=== PATIENT | female | born 1970 | race Caucasian/White ===

== ENCOUNTER 2017-06-23 23:01 | Emergency (ER) | payer MEDICARE, MEDICAID ==
[2017-06-23] MEDS ORDERED: traMADol TAB* 50 MG PO ONE (23:41)
[2017-06-24] MEDS ORDERED: traMADol TAB* 50 MG PO ONE (00:31)
[2017-06-24 00:44] VITALS: BP 130/72
--- NOTE | 2017-06-24 03:13 | ED ---
Back Pain - HPI Summary HPI Summary: Patient presents to the ED with CC of right lower rib pain after falling into the side of the console in her van. She denies breathing difficulties and notes to pain a 8/10 and constant. Denies fevers, sweats or chills. Denies urinary symptoms or abdominal pain. Multiple complaints and significant history at baseline, but states she only wants to assure she does not have a rib fracture. Worse with movement, better with rest. Pain is 5/10 at rest. - History of Current Complaint Chief Complaint: EDGeneral Stated Complaint: RT SIDE INJURY Time Seen by Provider: 06/23/17 23:12 Hx Obtained From: Patient Onset/Duration: Sudden Onset Onset/Duration: Started Minutes Ago Timing: Constant Back Pain Location: Is Discrete @ - right lower ribs Severity Initially: Moderate Severity Currently: Moderate Pain Intensity: 2 Pain Scale Used: 0-10 Numeric Character: Aching Aggravating Symptom(s): Movement, Bending, Walking, Cough Alleviating Symptom(s): Rest, Position Associated Signs And Symptoms: Positive: Negative - Risk Factors AAA Risk Factors: Negative TAD Risk Factors: Negative Cauda Equina Risk Factors: Negative Epidural Abscess Risk Factors: Negative - Allergies/Home Medications Allergies/Adverse Reactions: Allergies Allergy/AdvReac Type Severity Reaction Status Date / Time Statins Allergy Severe See Comment Verified 07/31/16 15:44 Erythromycin Allergy Palpitation Verified 07/31/16 15:44 s Penicillins [PCN] Allergy Unknown Verified 07/31/16 15:44 Reaction Details Shellfish Allergy Allergy Swelling Verified 07/31/16 15:44 Of Face,Lips,& Throat BEE STING Allergy Severe Anaphylatic Uncoded 06/07/16 18:10 Shock PMH/Surg Hx/FS Hx/Imm Hx Previously Healthy: Yes Endocrine/Hematology History: Denies: Hx Sickle Cell Disease Cardiovascular History: Denies: Other Cardiovascular Problems/Disorders Respiratory History: Reports: Hx Asthma, Hx Chronic Obstructive Pulmonary Disease (COPD) Denies: Hx Sleep Apnea GI History: Reports: Hx Gastroesophageal Reflux Disease History: Reports: Hx Kidney Infection - SIX YEARS AGO DUE TO STONE, Hx Kidney Stones - KIDNEY STONE 6 YEARS AGO Musculoskeletal History: Reports: Hx Arthritis - OSTEOARTHRITIS IN KNEES, AND HANDS, Hx Scoliosis, Other Musculoskeletal History - PATIENT REPORTS HAD OSTEOARTHRITIS STARTING IN HANDS BUT IT WENT AWAY Sensory History: Reports: Hx Contacts or Glasses - READING GLASSES Denies: Hx Hearing Aid Opthamlomology History: Reports: Hx Contacts or Glasses - READING GLASSES Neurological History: Reports: Hx Migraine - ON MED, Other Neuro Impairments/ Disorders - MUSCULAR DYSTROPHY NAME- NEMALINE RODMOPATHY Psychiatric History: Reports: Hx Anxiety - ON MED - Surgical History Surgery Procedure, Year, and Place: DENTAL. GALLBLADDER-2008. SPINAL FUSION - 1984 Hx Anesthesia Reactions: No - NO MRI AND NO SPINAL TAP - Immunization History Hx Pertussis Vaccination: No Immunizations Up to Date: Unable to Obtain/Confirm Infectious Disease History: No Infectious Disease History: Denies: Traveled Outside the [place] in Last 30 Days - Family History Known Family History: Positive: Cardiac Disease - Social History Occupation: Employed Full-time Lives: With Family Alcohol Use: Rare Hx Substance Use: No Substance Use Type: Reports: None Hx Tobacco Use: No Smoking Status (MU): Never Smoked Tobacco Review of Systems Constitutional: Negative Negative: Fever, Chills, Fatigue Eyes: Negative Cardiovascular: Negative Negative: Palpitations, Chest Pain Respiratory: Negative Negative: Shortness Of Breath, Cough Negative: Abdominal Pain, Vomiting, Diarrhea, Nausea Positive: no symptoms reported, see HPI Positive: Arthralgia - right rib pain Negative: Rash, Bruising Neurological: Negative All Other Systems Reviewed And Are Negative: Yes Physical Exam Triage Information Reviewed: Yes Vital Signs On Initial Exam: Initial Vitals Temp Pulse Resp BP Pulse Ox 97.8 F 75 14 136/78 98 06/23/17 23:04 06/23/17 23:04 06/23/17 23:04 06/23/17 23:04 06/23/17 23:04 Vital Signs Reviewed: Yes Appearance: Positive: Well-Appearing, Well-Nourished Skin: Positive: Warm, Skin Color Reflects Adequate Perfusion Head/Face: Positive: Normal Head/Face Inspection Eyes: Positive: EOMI, MACARENA, Conjunctiva Clear Neck: Positive: Supple, No Lymphadenopathy Respiratory/Lung Sounds: Positive: Clear to Auscultation Cardiovascular: Positive: Normal, RRR, Pulses are Symmetrical in both Upper and Lower Extremities Musculoskeletal: Positive: Normal, Strength/ROM Intact Neurological: Positive: Sensory/Motor Intact, Alert, Oriented to Person Place, Time, Speech Normal Psychiatric: Positive: Normal - [place] Coma Scale Coma Scale Total: 15 Diagnostics - Vital Signs Vital Signs Temp Pulse Resp BP Pulse Ox 06/24/17 00:43 77 18 130/72 98 10/13/17 23:04 97.8 F 75 14 136/78 98 - Laboratory Lab Statement: Any lab studies that have been ordered have been reviewed, and results considered in the medical decision making process. Back Pain Course/Dx - Course Course Of Treatment: Patient is evaluted for right rib pain. Xray read by Dr. Randolph and myself as negative for fracture or other acute findings. Patient is given tramadol 50mg with relief. Rx sent. She is Ok with discharge. - Diagnoses Differential Diagnosis/HQI/PQRI: Positive: Strain, Sprain Provider Diagnoses: Contusion of rib Discharge - Discharge Plan Condition: Stable Disposition: HOME Prescriptions: traMADol TAB* [Ultram*] 50 mg PO Q12H PRN #6 tab MDD 2 PRN Reason: Pain Patient Education Materials: Rib Contusion (ED) Referrals: Lonnie JOHNSON,Darrin Gorman [Primary Care Provider] - Additional Instructions: Follow up only as needed for worsening pain Ibuprofen 600mg three times daily for pain For pain not well controlled with ibuprofen, tramadol 50mg twice daily Do not drive with this medication
--- NOTE | 2017-06-24 07:06 | RAD ---
INDICATION: Right rib injury. COMPARISON: There are no prior studies available for comparison. TECHNIQUE: 6 views of the right ribs and a PA view of the chest was obtained. FINDINGS: No fracture or significant focal osseous abnormality is seen. The heart is within normal limits in size. The lungs are clear. There is no evidence for pneumothorax or pleural effusion. IMPRESSION: NO EVIDENCE FOR FRACTURE.
== END 2017-06-24 00:46 | disposition home or self-care (01) ==
LOC: ED 23:01
DX: S20.211A Contusion of right front wall of thorax, initial encounter (principal); R07.81 Pleurodynia; W19.XXXA Unspecified fall, initial encounter; Y93.9 Activity, unspecified; Y92.9 Unspecified place or not applicable
CPT/HCPCS: 99283; A9270-GY

== ENCOUNTER 2018-05-16 23:53 | Emergency (ER) | payer MEDICARE, MEDICAID ==
--- NOTE | 2018-05-17 00:35 | ED ---
Abdominal Pain/Female - HPI Summary HPI Summary: This is Fredy rocha, documenting for attending Anais Glass MD. Pt is a 47 y/o F c/o L sided flank pain onset ~ 1 month ago, resolving and returning today ~2357 after working. Pain is described as sharp and rated a 9/ 10. Assoc. Sx: L flank pain, nausea. Denies: vomiting, fever. Patient has had a kidney stone in the past, states that she has not been peeing much and has metal rods in her back. She reports that nothing alleviates the pain. - History of Current Complaint Chief Complaint: EDFlankPain Stated Complaint: LEFT SIDE PAIN Time Seen by Provider: 05/17/18 00:18 Hx Obtained From: Patient Onset/Duration: Gradual Onset, Lasting Weeks, Still Present Severity Currently: Moderate Pain Intensity: 6 Pain Scale Used: 0-10 Numeric Location: Flank - L Character: Sharp Alleviating Factor(s): Nothing Associated Signs and Symptoms: Positive: Nausea. Negative: Vomiting Allergies/Adverse Reactions: Allergies Allergy/AdvReac Type Severity Reaction Status Date / Time bee venom protein (honey bee) Allergy Anaphylatic Verified 05/17/18 00:22 Shock erythromycin base Allergy Palpitation Verified 05/17/18 00:22 s Penicillins Allergy Unknown Verified 05/17/18 00:22 Reaction Details shellfish derived Allergy Swelling Verified 05/17/18 00:22 Of Face,Lips,& Throat Rfewtiy-Liq-Ocb Reductase Allergy See Comment Verified 05/17/18 00:22 Inhibitor BEE STING Allergy Severe Anaphylatic Uncoded 05/17/18 00:22 Shock Home Medications: Home Medications Cyanocobalamin TAB* [Vitamin B12 TAB*] 500 mcg PO DAILY 05/17/18 [History Confirmed 05/17/18] PMH/Surg Hx/FS Hx/Imm Hx Endocrine/Hematology History: Denies: Hx Sickle Cell Disease Cardiovascular History: Denies: Other Cardiovascular Problems/Disorders Respiratory History: Reports: Hx Asthma, Hx Chronic Obstructive Pulmonary Disease (COPD) Denies: Hx Sleep Apnea GI History: Reports: Hx Gastroesophageal Reflux Disease History: Reports: Hx Kidney Infection - SIX YEARS AGO DUE TO STONE, Hx Kidney Stones - KIDNEY STONE 6 YEARS AGO Musculoskeletal History: Reports: Hx Arthritis - OSTEOARTHRITIS IN KNEES, AND HANDS, Hx Scoliosis, Other Musculoskeletal History - PATIENT REPORTS HAD OSTEOARTHRITIS STARTING IN HANDS BUT IT WENT AWAY Sensory History: Reports: Hx Contacts or Glasses - READING GLASSES Opthamlomology History: Reports: Hx Contacts or Glasses - READING GLASSES Neurological History: Reports: Hx Migraine - ON MED, Other Neuro Impairments/ Disorders - MUSCULAR DYSTROPHY NAME- NEMALINE RODMOPATHY Psychiatric History: Reports: Hx Anxiety - ON MED - Surgical History Surgery Procedure, Year, and Place: DENTAL. GALLBLADDER-2008. SPINAL FUSION - 1984 Hx Anesthesia Reactions: No - NO MRI AND NO SPINAL TAP - Immunization History Date of Tetanus Vaccine: utd Date of Influenza Vaccine: none Infectious Disease History: No Infectious Disease History: Denies: Traveled Outside the [place] in Last 30 Days - Family History Known Family History: Positive: Cardiac Disease - Social History Occupation: Disabled Lives: Dormitory/Roommates Alcohol Use: None Hx Substance Use: No Substance Use Type: Reports: Prescribed Substance Use Comment - Amount & Last Used: xanax - prn, and hydrocodone 5/325 q4h Hx Tobacco Use: No Smoking Status (MU): Never Smoked Tobacco Have You Smoked in the Last Year: No Review of Systems Negative: Fever Positive: Abdominal Pain - L flank, Nausea. Negative: Vomiting All Other Systems Reviewed And Are Negative: Yes Physical Exam - Summary Physical Exam Summary: VITAL SIGNS: Reviewed. GENERAL: Patient is a severely obese female who is lying comfortable in the stretcher. Patient is not in any acute respiratory distress. HEAD AND FACE: No signs of trauma. No ecchymosis, hematomas or skull depressions. No sinus tenderness. EYES: PERRLA, EOMI x 2, No injected conjunctiva, no nystagmus. EARS: Hearing grossly intact. Ear canals and tympanic membranes are within normal limits. MOUTH: Oropharynx within normal limits. NECK: Supple, trachea is midline, no adenopathy, no JVD, no carotid bruit, no c- spine tenderness, neck with full ROM. CHEST: Symmetric, no tenderness at palpation LUNGS: Clear to auscultation bilaterally. No wheezing or crackles. CVS: Regular rate and rhythm, S1 and S2 present, no murmurs or gallops appreciated. ABDOMEN: LLQ tenderness. No signs of distention. No rebound no guarding, and no masses palpated. Bowel sounds are normal. EXTREMITIES: FROM in all major joints, no edema, no cyanosis or clubbing. NEURO: Alert and oriented x 3. No acute neurological deficits. Speech is normal and follows commands. SKIN: Dry and warm Triage Information Reviewed: Yes Vital Signs On Initial Exam: Initial Vitals Temp Pulse Resp BP Pulse Ox 97.9 F 98 16 125/69 98 05/16/18 23:56 05/16/18 23:56 05/16/18 23:56 05/16/18 23:56 05/16/18 23:56 Vital Signs Reviewed: Yes Diagnostics - Vital Signs Vital Signs Temp Pulse Resp BP Pulse Ox 05/16/18 23:56 97.9 F 98 16 125/69 98 - Laboratory Result Diagrams: 05/17/18 00:53 05/17/18 00:53 Lab Statement: Any lab studies that have been ordered have been reviewed, and results considered in the medical decision making process. - CT A/P CT CT Interpretation: Positive (See Comments) - IMPRESSION: Descending sigmoid junction colon diverticulitis. No perforation or abscess. CT Interpretation Completed By: ED Physician - ED physician reviewed this radiology report. Abdominal Pain Fem Course/Dx - Course Course Of Treatment: Provider ordered an A/P CT - Results: positive, see diagnostics for details. Patient will be D/C home with a Dx of diverticulitis - Diagnoses Provider Diagnoses: Diverticulitis Discharge - Sign-Out/Discharge Documenting (check all that apply): Patient Departure - Discharge Plan Condition: Stable Disposition: HOME Prescriptions: Levofloxacin TAB* [Levaquin TAB*] 500 mg PO DAILY #7 tab metroNIDAZOLE [Flagyl 500 MG TAB] 500 mg PO TID #20 tab oxyCODONE/Acetamin 5/325 MG* [Percocet 5/325 TAB*] 1 tab PO Q6H PRN #14 tab MDD 4 PRN Reason: Pain Patient Education Materials: Diverticulitis (ED) Referrals: Lonnie JOHNSON,Darrin Gorman [Primary Care Provider] - 2 Days Additional Instructions: RETURN TO THE EMERGENCY DEPARTMENT FOR CHANGING OR WORSENING SYMPTOMS. FOLLOW UP WITH PCP IN 1-2 DAYS. - Attestation Statements Document Initiated by Scribe: Yes Documenting Scribe: Fredy Caban Provider For Whom Scribe is Documenting (Include Credential): Anais Glass MD Scribe Attestation: Fredy Rodgers, scribed for Anais Glass MD on 05/17/18 at 0323.
[2018-05-17] MEDS ORDERED: Metoclopramide IV* 5 MG/ML 2 ML VIAL IV SLOW PU ONE (00:38)
[2018-05-17] MEDS ORDERED: Morphine INJ* 2 MG/ML 1 ML SYRINGE (TWO MG - NEW SYRINGE VERSION) IV ONE (00:38)
[2018-05-17 00:59] LABS: ABS Basophils 0.1 10^3/ul (0-0.2); ABS Eosinophils 0.6 10^3/ul (0-0.6); ABS Lymphocytes 2.4 10^3/ul (1.0-4.8); ABS Monocytes 0.8 10^3/ul (0-0.8); ABS Neutrophils 8.6 10^3/ul (1.5-7.7); ABS Nucleated RBC 0 10^3/ul; Eosinophil % 4.5 % (0-6); Hematocrit 38 % (35-47); Hemoglobin 12.7 g/dl (12.0-16.0); Lymphocyte % 19.5 % (25-47); Mean Corpuscular HGB Conc 34 g/dl (31-36); Mean Corpuscular Hemoglobin 27 pg (27-31); Mean Corpuscular Volume 81 fL (80-97); Mean Platelet Volume 8.9 um3 (7.4-10.4); Nucleated Red Blood Cells % 0.1; Platelet Count 261 10^3/ul (150-450); Red Blood Count 4.67 10^6/ul (4.00-5.40); Red Cell Distribution Width 14 % (10.5-15); White Blood Count 12.5 10^3/ul (3.5-10.8)
[2018-05-17 01:03] LABS: Urine Appearance Clear; Urine Blood Negative (Negative); Urine Color Yellow; Urine Ketones Negative (Negative); Urine Protein Negative (Negative); Urine Specific Gravity 1.014 (1.010-1.030); Urine Urobilinogen Negative (Negative)
[2018-05-17 01:07] LABS: INR 0.94 (0.77-1.02)
[2018-05-17 01:17] LABS: EGFR Non-African American 100.3 (>60)
[2018-05-17] MEDS ORDERED: Iohexol 300* (CONTRAST) 10 ML SDV IV ONE (01:40)
--- NOTE | 2018-05-17 02:59 | RAD ---
EXAM: CT Abdomen and Pelvis With Intravenous Contrast CLINICAL HISTORY: 47 years old, female; Pain; Abdominal pain; Flank; Left; Prior surgery; Surgery date: 6+ months; Surgery type: Char/spinal rodding for scoliosis; Additional info: Flank pain TECHNIQUE: Axial computed tomography images of the abdomen and pelvis with intravenous contrast. All CT scans at this facility use at least one of these dose optimization techniques: automated exposure control; mA and/or kV adjustment per patient size (includes targeted exams where dose is matched to clinical indication); or iterative reconstruction. Coronal and sagittal reformatted images were created and reviewed. CONTRAST: 147 mL of OMNIPAQUE 300 administered intravenously. COMPARISON: No relevant prior studies available. FINDINGS: Lung bases: Normal. No mass. No consolidation. ABDOMEN: Liver: Normal. No masses. Portal and hepatic veins are patent. Gallbladder and bile ducts: Surgically absent gallbladder. Pancreas: Normal. No mass. No ductal dilation. Spleen: Normal. No splenomegaly. Adrenals: Normal. No mass. Kidneys and ureters: Normal. No solid mass. Stomach and bowel: Incompletely distended grossly normal stomach. Normal caliber small bowel. Distal colonic diverticulosis with a short segment at the descending sigmoid junction which is circumferentially thickwalled with mild adjacent mesocolonic stranding centered around a diverticulum (series 2, image 55). No pericolonic encapsulated fluid collections. PELVIS: Appendix: Normal caliber appendix without wall thickening or adjacent inflammation. Bladder: Thin-walled bladder with no focal nodularity, perivesicular stranding, or calcifications. Reproductive: Uterus and ovaries are normal. ABDOMEN and PELVIS: Intraperitoneal space: Normal. No pneumoperitoneum. No ascities. Bones/joints: Partially visualized thoracolumbar spine posterior straightening instrumentation. S-shaped scoliosis of the thoracolumbar spine. No fractures. No suspicious bone lesions. Soft tissues: Normal. No hernias. Vasculature: Normal caliber aorta with no evidence of dissection or rupture. Patent IVC. Lymph nodes: Normal. No enlarged lymph nodes. IMPRESSION: Descending sigmoid junction colon diverticulitis. No perforation or abscess.
[2018-05-17] MEDS ORDERED: metroNIDAZOLE TAB* 250 MG PO ONE (03:11)
[2018-05-17] MEDS ORDERED: Levofloxacin TAB* 500 MG PO ONE (03:11)
[2018-05-17 03:37] VITALS: BP 129/71
== END 2018-05-17 03:37 | disposition home or self-care (01) ==
LOC: ED 23:53
DX: K57.32 Diverticulitis of large intestine without perforation or abscess without bleeding (principal); K57.30 Diverticulosis of large intestine without perforation or abscess without bleeding; Z87.442 Personal history of urinary calculi; Z90.49 Acquired absence of other specified parts of digestive tract; Z88.3 Allergy status to other anti-infective agents; Z88.0 Allergy status to penicillin; Z88.8 Allergy status to other drugs, medicaments and biological substances
CPT/HCPCS: 36415; 74177; 80053; 81003; 82150; 83605; 83690; 83735; 84702; 85025; 85610; 85730; 86140; 96374; 96375; 99283; A9270-GY; J2270; J2765; Q9967

== ENCOUNTER 2018-05-22 22:24 | Emergency (ER) | payer MEDICARE, MEDICAID ==
[2018-05-22] MEDS ORDERED: Famotidine TAB* 20 MG PO ONE (23:37)
[2018-05-22] MEDS ORDERED: predniSONE TAB* 20 MG PO ONE (23:37)
[2018-05-22] MEDS ORDERED: diPHENhydraMINE PO* 25 MG PO ONE (23:37)
--- NOTE | 2018-05-22 23:43 | ED ---
Allergic Reaction/Systemic - HPI Summary HPI Summary: Patient complains of progressive rash starting last which she received IV contrast for LLQpain. Patient was diagnosed with diverticulitis, started Levaquin that evening and noticed pruritic rash at right before meals. Rash progressed and PCP told patient to Stop taking Levaquin Monday night. Rash was worse today, diffusely located on neck, chest, back, bilateral thighs. Patient also has history of asthma, states she has been using an in her inhaler more frequently since rash started. Patient states she takes Benadryl 25 mg nightly, has not increased that dose. Denies oral swelling, dysphagia, fever, cough, sore throat, CP, N/V/D, abdominal pain, change in urine, change in BM - History of Current Complaint Chief Complaint: EDAllergicReaction Time Seen by Provider: 05/22/18 23:27 Hx Obtained From: Patient Onset/Duration: Sudden Onset Timing: Constant Severity Currently: None Pain Intensity: 0 Pain Scale Used: 0-10 Numeric Character: Pruritus, Hives - Allergies/Home Medications Allergies/Adverse Reactions: Allergies Allergy/AdvReac Type Severity Reaction Status Date / Time Iodinated Contrast- Oral and Allergy Intermediate Hives Verified 05/22/18 22:31 IV Dye Iodine and Iodide Containing Allergy Intermediate Hives Verified 05/22/18 22:31 Produc bee venom protein (honey bee) Allergy Anaphylatic Verified 05/22/18 22:31 Shock erythromycin base Allergy Palpitation Verified 05/22/18 22:31 s Penicillins Allergy Unknown Verified 05/22/18 22:31 Reaction Details shellfish derived Allergy Swelling Verified 05/22/18 22:31 Of Face,Lips,& Throat Smmznoy-Kgn-Dse Reductase Allergy See Comment Verified 05/22/18 22:31 Inhibitor BEE STING Allergy Severe Anaphylatic Uncoded 05/22/18 22:31 Shock PMH/Surg Hx/FS Hx/Imm Hx Endocrine/Hematology History: Denies: Hx Anticoagulant Therapy, Hx Diabetes, Hx Sickle Cell Disease Cardiovascular History: Denies: Hx Cardiac Arrest, Hx Hypertension, Other Cardiovascular Problems/ Disorders Respiratory History: Reports: Hx Asthma, Hx Chronic Obstructive Pulmonary Disease (COPD) Denies: Hx Sleep Apnea GI History: Reports: Hx Gastroesophageal Reflux Disease History: Reports: Hx Kidney Infection - SIX YEARS AGO DUE TO STONE, Hx Kidney Stones - KIDNEY STONE 6 YEARS AGO Denies: Hx Renal Disease Musculoskeletal History: Reports: Hx Arthritis - OSTEOARTHRITIS IN KNEES, AND HANDS, Hx Scoliosis, Other Musculoskeletal History - PATIENT REPORTS HAD OSTEOARTHRITIS STARTING IN HANDS BUT IT WENT AWAY Sensory History: Reports: Hx Contacts or Glasses - READING GLASSES Opthamlomology History: Reports: Hx Contacts or Glasses - READING GLASSES Neurological History: Reports: Hx Migraine - ON MED, Other Neuro Impairments/ Disorders - MUSCULAR DYSTROPHY NAME- NEMALINE RODMOPATHY Psychiatric History: Reports: Hx Anxiety - ON MED - Cancer History Cancer Type, Location and Year: CERVICAL - Surgical History Surgery Procedure, Year, and Place: DENTAL. GALLBLADDER-2008. SPINAL FUSION - 1984 Hx Anesthesia Reactions: No - NO MRI AND NO SPINAL TAP - Immunization History Date of Tetanus Vaccine: utd Date of Influenza Vaccine: none Infectious Disease History: No Infectious Disease History: Denies: Traveled Outside the [place] in Last 30 Days - Family History Known Family History: Positive: Cardiac Disease - Social History Alcohol Use: None Hx Substance Use: No Substance Use Type: Reports: Prescribed Substance Use Comment - Amount & Last Used: xanax - prn, and hydrocodone 5/325 q4h Hx Tobacco Use: No Smoking Status (MU): Never Smoked Tobacco Have You Smoked in the Last Year: No Review of Systems Constitutional: Negative Eyes: Negative ENT: Negative Cardiovascular: Negative Positive: Shortness Of Breath Gastrointestinal: Negative Genitourinary: Negative Musculoskeletal: Negative Positive: Rash Neurological: Negative Psychological: Normal All Other Systems Reviewed And Are Negative: Yes Physical Exam - Summary Physical Exam Summary: Red maculopapular rash noted on chest, abdomen, back, bilateral upper thighs, right AC. Triage Information Reviewed: Yes Vital Signs On Initial Exam: Initial Vitals Temp Pulse Resp BP Pulse Ox 98.1 F 80 16 102/50 98 05/22/18 22:28 05/22/18 22:28 05/22/18 22:28 05/22/18 22:28 05/22/18 22:28 Vital Signs Reviewed: Yes Appearance: Positive: Well-Appearing Skin: Positive: Warm Head/Face: Positive: Normal Head/Face Inspection Eyes: Positive: Normal ENT: Positive: Normal ENT inspection Neck: Positive: Supple Respiratory/Lung Sounds: Positive: Clear to Auscultation Cardiovascular: Positive: Normal Abdomen Description: Positive: Nontender Musculoskeletal: Positive: Normal Neurological: Positive: Normal Psychiatric: Positive: Normal AVPU Assessment: Alert - [place] Coma Scale Best Eye Response: 4 - Spontaneous Best Motor Response: 6 - Obeys Commands Best Verbal Response: 5 - Oriented Coma Scale Total: 15 Diagnostics - Vital Signs Vital Signs Temp Pulse Resp BP Pulse Ox 05/22/18 22:28 98.1 F 80 16 102/50 98 - Laboratory Lab Statement: Any lab studies that have been ordered have been reviewed, and results considered in the medical decision making process. Allergic Reaction Course/Dx - Course Course Of Treatment: Patient complains of progressive rash starting last which she received IV contrast for LLQpain. Patient was diagnosed with diverticulitis, started Levaquin that evening and noticed pruritic rash at right before meals. Rash progressed and PCP told patient to Stop taking Levaquin Monday night. Rash was worse today, diffusely located on neck, chest , back, bilateral thighs. Patient also has history of asthma, states she has been using an in her inhaler more frequently since rash started. Patient states she takes Benadryl 25 mg nightly, has not increased that dose. Denies oral swelling, dysphagia, fever, cough, sore throat, CP, N/V/D, abdominal pain, change in urine, change in BM. Physical exam:Red maculopapular rash noted on chest, abdomen, back, bilateral upper thighs, right AC. Vital signs normal. Patient's symptoms improved mildly with Benadryl 50 mg by mouth, prednisone 60 mg by mouth, Pepcid 40 mg by mouth. Rx for prednisone 40 mg by mouth daily by 5 days, and Benadryl 50 mg by mouth 3 times a day for same. Return for any new or worsening symptoms. Patient has follow-up with PCP 05/24/18 at 8 AM - Diagnoses Provider Diagnoses: Allergic reaction Discharge - Sign-Out/Discharge Documenting (check all that apply): Patient Departure - Discharge Plan Condition: Stable Disposition: HOME Patient Education Materials: Urticaria (ED) Referrals: Lonnie JOHNSON,Darrin Gorman [Primary Care Provider] - Additional Instructions: Take prednisone as directed. May take 50 mg of Benadryl by mouth 3 times a day. Follow-up with primary care. Return to the ED for any new or worsening symptoms - Billing Disposition and Condition Condition: STABLE Disposition: Home
[2018-05-23] MEDS ORDERED: predniSONE TAB* 20 MG ONE (00:44)
[2018-05-23 02:27] VITALS: BP 135/67
== END 2018-05-23 02:20 | disposition home or self-care (01) ==
LOC: ED 22:24
DX: L27.0 Generalized skin eruption due to drugs and medicaments taken internally (principal); T36.8X5A Adverse effect of other systemic antibiotics, initial encounter; Y92.9 Unspecified place or not applicable; J45.909 Unspecified asthma, uncomplicated; G43.909 Migraine, unspecified, not intractable, without status migrainosus; F41.9 Anxiety disorder, unspecified; Z88.1 Allergy status to other antibiotic agents; Z91.030 Bee allergy status; Z91.041 Radiographic dye allergy status; Z88.0 Allergy status to penicillin; Z91.013 Allergy to seafood
CPT/HCPCS: 99283; A9270-GY; J7512

== ENCOUNTER → 2018-10-02 16:02 | Emergency (ER) | payer MEDICARE, MEDICAID ==
[2018-10-02 16:12] VITALS: BP 141/84
--- NOTE | 2018-10-02 16:59 | ED ---
Lower Extremity - HPI Summary HPI Summary: This patient is a 48 year old F presenting to [facility] accompanied with a chief complaint of injuries after a fall. Pt states she walks with wrist crutches and they slid on the ice, landing on her knees last night. She reports increased posterior knee pain. The patient states she has an Hx of muscular dystrophy and osteoarthritis and says she falls a lot. She says has a sharp pain in her right knee radiates down her RLE. She also states she has Hx of hairline fractures and bone spurs that cause general numbness and tingling. She states she is concerned about the ligaments behind her knees after this fall. She rates her pain 7/10 in severity. The patient takes oxycodone for her pain. - History of Current Complaint Chief Complaint: EDExtremityLower Stated Complaint: FALL/RT KNEE INJURY Time Seen by Provider: 10/02/18 16:33 Hx Obtained From: Patient Mechanism Of Injury: Fall From A Standing Position Onset of Pain: Immediate Onset/Duration: Days Severity Initially: Moderate Severity Currently: Moderate Pain Intensity: 7 Pain Scale Used: 0-10 Numeric Timing: Constant Location: Is Discrete @ - Right knee Character Of Pain: Sharp Associated Signs And Symptoms: Positive: Knee Pain - Allergies/Home Medications Allergies/Adverse Reactions: Allergies Allergy/AdvReac Type Severity Reaction Status Date / Time Iodinated Contrast- Oral and Allergy Intermediate Hives Verified 10/02/18 16:12 IV Dye Iodine and Iodide Containing Allergy Intermediate Hives Verified 10/02/18 16:12 Produc bee venom protein (honey bee) Allergy Anaphylatic Verified 10/02/18 16:12 Shock erythromycin base Allergy Palpitation Verified 10/02/18 16:12 s Penicillins Allergy Unknown Verified 10/02/18 16:12 Reaction Details shellfish derived Allergy Swelling Verified 10/02/18 16:12 Of Face,Lips,& Throat Oezgnco-Xfn-[id number] Reductase Allergy See Comment Verified 10/02/18 16:12 Inhibitor BEE STING Allergy Severe Anaphylatic Uncoded 10/02/18 16:12 Shock PMH/Surg Hx/FS Hx/Imm Hx Endocrine/Hematology History: Denies: Hx Anticoagulant Therapy, Hx Diabetes, Hx Sickle Cell Disease Cardiovascular History: Denies: Hx Cardiac Arrest, Hx Hypertension, Other Cardiovascular Problems/ Disorders Respiratory History: Reports: Hx Asthma, Hx Chronic Obstructive Pulmonary Disease (COPD) Denies: Hx Sleep Apnea GI History: Reports: Hx Gastroesophageal Reflux Disease History: Reports: Hx Kidney Infection - SIX YEARS AGO DUE TO STONE, Hx Kidney Stones - KIDNEY STONE 6 YEARS AGO Denies: Hx Renal Disease Musculoskeletal History: Reports: Hx Arthritis - OSTEOARTHRITIS IN KNEES, AND HANDS, Hx Scoliosis, Other Musculoskeletal History - PATIENT REPORTS HAD OSTEOARTHRITIS STARTING IN HANDS BUT IT WENT AWAY Sensory History: Reports: Hx Contacts or Glasses - READING GLASSES Opthamlomology History: Reports: Hx Contacts or Glasses - READING GLASSES Neurological History: Reports: Hx Migraine - ON MED, Other Neuro Impairments/ Disorders - MUSCULAR DYSTROPHY NAME- NEMALINE RODMOPATHY Psychiatric History: Reports: Hx Anxiety - ON MED - Cancer History Cancer Type, Location and Year: CERVICAL - Surgical History Surgery Procedure, Year, and Place: DENTAL. GALLBLADDER-2008. SPINAL FUSION - 1984 Hx Anesthesia Reactions: No - NO MRI AND NO SPINAL TAP - Immunization History Date of Tetanus Vaccine: utd Date of Influenza Vaccine: none Infectious Disease History: No Infectious Disease History: Denies: Traveled Outside the [place] in Last 30 Days - Family History Known Family History: Positive: Cardiac Disease - Social History Alcohol Use: None Hx Substance Use: No Substance Use Type: Reports: None Substance Use Comment - Amount & Last Used: xanax - prn, and hydrocodone 5/325 q4h Hx Tobacco Use: No Smoking Status (MU): Never Smoked Tobacco Have You Smoked in the Last Year: No Review of Systems Negative: Fever Positive: Decreased ROM, Other - Right knee pain, bilateral lower extremity pain Positive: Numbness All Other Systems Reviewed And Are Negative: Yes Physical Exam - Summary Physical Exam Summary: Appearance: Well appearing, no pain distress Skin: warm, dry, reflects adequate perfusion. Head/face: normal Eyes: EOMI, MACARENA ENT: mucous membranes moist Neck: supple, non-tender Respiratory: CTA, breath sounds present Cardiovascular: RRR, pulses symmetrical Abdomen: non-tender, soft Bowel Sounds: present Musculoskeletal: normal. Limited ROM in lower extremities. Bilateral knee contusion and right knee tenderness. Neuro: normal, sensory motor intact, A&Ox3 Triage Information Reviewed: Yes Vital Signs On Initial Exam: Initial Vitals Temp Pulse Resp BP Pulse Ox 98 F 80 17 141/84 98 10/02/18 16:08 10/02/18 16:08 10/02/18 16:08 10/02/18 16:08 10/02/18 16:08 Vital Signs Reviewed: Yes Diagnostics - Vital Signs Vital Signs Temp Pulse Resp BP Pulse Ox 10/02/18 16:08 98 F 80 17 141/84 98 - Laboratory Lab Statement: Any lab studies that have been ordered have been reviewed, and results considered in the medical decision making process. - Radiology Right Knee XR Radiology Interpretation Completed By: Radiologist Summary of Radiographic Findings: Suprapatellar effusion of the right knee. Marked degenerative changes medial compartment both knees as well as the patellofemoral joint. ED Provider has reviewed this report. Lower Extremity Course/Dx - Course Course Of Treatment: Nurse's notes reviewed. X-rays negative aside from significant osteoarthritis. No limitation of range of motion or readily identifiable ligamentous weakness or effusion on exam. Both knees Sloan wrap. Follow-up with or toe/PMD. - Diagnoses Differential Diagnosis/HQI/PQRI: Positive: Fracture (Closed), Sprain, Strain Provider Diagnoses: Contusion of knee, right, Contusion of knee, left, Right knee sprain Discharge - Sign-Out/Discharge Documenting (check all that apply): Patient Departure - Discharge - Discharge Plan Condition: Improved Disposition: HOME Prescriptions: Meloxicam [Mobic] 7.5 mg PO DAILY #30 tablet Patient Education Materials: Knee Sprain (ED) Forms: *Work Release Referrals: Lonnie JOHNSON,Darrin Gorman [Primary Care Provider] - Additional Instructions: Ice, Sloan wraps for comfort. Continue prescribed pain medicine. Call [facility] to schedule follow-up appointment. Return if worse, new symptoms or other concerns. - Billing Disposition and Condition Condition: IMPROVED Disposition: Home - Attestation Statements Document Initiated by Franklin: Yes Documenting Scribe: Fredy Watson Provider For Whom Franklin is Documenting (Include Credential): Ladarius Perez MD Scribe Attestation: Fredy Rodgers, scribed for Ladarius Perez MD on 10/02/18 at 1901. Scribe Documentation Reviewed: Yes Provider Attestation: The documentation as recorded by the Fredy rocha accurately reflects the service I personally performed and the decisions made by me, Ladarius Perez MD Status of Scribe Document: Viewed
== END | disposition home or self-care (01) ==
LOC: ED 16:02
DX: S83.91XA Sprain of unspecified site of right knee, initial encounter (principal); S80.01XA Contusion of right knee, initial encounter; S80.02XA Contusion of left knee, initial encounter; M25.561 Pain in right knee; Z88.0 Allergy status to penicillin; Y92.9 Unspecified place or not applicable; W00.9XXA Unspecified fall due to ice and snow, initial encounter
CPT/HCPCS: 99282

== ENCOUNTER 2023-05-15 22:31 | Inpatient (IN) ==
[2023-05-16 02:43] LABS: Hematocrit 36.1 % (35-45); Hemoglobin 12.1 g/dL (11.5-14.3); Mean Corpuscular Hemoglobin 27.3 pg (27-33); Mean Corpuscular Hgb Conc 33.5 g/dL (31-36); Mean Corpuscular Volume 81.7 fL (80-97); Mean Platelet Volume 9.2 fL (7.5-11.2); Platelet Count 240 10^3/uL (150-450); Red Blood Count 4.42 10^6/uL (3.63-4.92); Red Cell Distribution Width 14.2 % (12-17); White Blood Count 12.8 10^3/uL (3.8-11.8)
[2023-05-16 02:58] LABS: Albumin 3.8 g/dL (3.2-5.2); Albumin/Globulin Ratio 1.2 (1-3); Calcium 8.8 mg/dL (8.6-10.3); Creatinine, Serum 0.71 mg/dL (0.51-0.95); Globulin 3.2 g/dL (2-4); Potassium 3.6 mmol/L (3.5-5.0); Total Bilirubin 0.9 mg/dL (0.2-1.0); eGFR CKD-EPI 103.5 (>60)
[2023-05-16 03:10] LABS: ABS Lymphocytes 1.7 10^3/uL (1.0-4.8); ABS Monocytes 0.7 10^3/uL (0.0-0.9); ABS Neutrophils 10.3 10^3/uL (1.5-7.6); ABS Nucleated RBC 0.01 10^3/ul; Eosinophil % 0.3 %; Lymphocyte % 13.5 %; Nucleated Red Blood Cells % 0.1 /100 WBC (0.0-0.4)
[2023-05-16 03:13] LABS: TSH Ultra Thyroid Stim Horm 0.27 mcIU/mL (0.34-5.60)
[2023-05-16] MEDS ORDERED: Albuterol HFA INHALER 8 gm MDI INH ONE (06:01)
[2023-05-16] MEDS ORDERED: Dexamethasone IV 4 MG/ML VIAL 1 ml VIAL IV SLOW PU ONE (07:00)
[2023-05-16] MEDS ORDERED: Iohexol 350 (CONTRAST) 500 ML MDV IV ONE (07:03)
[2023-05-16] MEDS ORDERED: NS 0.9% 1000 ml BAG 1,000 ML IV ONE (07:43)
[2023-05-16 07:45] LABS: Urine Appearance Clear; Urine Bilirubin Negative (Negative); Urine Blood Negative (Negative); Urine Color Yellow; Urine Glucose Negative (Negative); Urine Ketones 1+ (Negative); Urine Nitrite Negative (Negative); Urine Protein 1+(30 mg/dL) (Negative); Urine Specific Gravity 1.013 (1.002-1.030); Urine Urobilinogen Negative (Negative)
[2023-05-16 07:53] LABS: Urine Bacteria 1+ (Absent); Urine Red Blood Cell Trace(0-2/hpf) (Absent); Urine Squamous Epithelial Cell Present (Absent); Urine White Blood Cell Trace(0-5/hpf) (Absent)
[2023-05-16] MEDS: Enoxaparin 40 MG/0.4 ML SYR SUBCUT SCH (12:27)
[2023-05-16] MEDS ORDERED: cefTRIAXone 2 gm/50 mL D5W 2 GM/50 ML BAG IV SCH (12:30)
[2023-05-16] MEDS: SPIRIVA Respimat (tiotropium) 2.5 mcg/inh Inhaler INH SCH (13:29)
[2023-05-16] MEDS: Mometasone/Formoter 200/5 MDI INH SCH ×2 (13:29→18:10)
[2023-05-16 14:15] LABS: C Reactive Protein 180.47 mg/L (<8.01)
[2023-05-16] MEDS ORDERED: Azithromycin 500 mg/250 ml NS 500 MG/250 ML BAG IVPB SCH (15:00)
[2023-05-17] MEDS: Mometasone/Formoter 200/5 MDI INH SCH ×2 (08:18→19:20)
[2023-05-17] MEDS: SPIRIVA Respimat (tiotropium) 2.5 mcg/inh Inhaler INH SCH (08:18)
[2023-05-17] MEDS: Enoxaparin 40 MG/0.4 ML SYR SUBCUT SCH (11:13)
[2023-05-17] MEDS ORDERED: cefTRIAXone 2 gm/50 mL D5W 2 GM/50 ML BAG IV SCH (13:30)
[2023-05-17] MEDS: cefTRIAXone 1 gm/50 mL D5W 1 GM/50 ML BAG IV SCH (13:34)
[2023-05-17] MEDS: Albuterol HFA INHALER 8 gm MDI INH PRN (17:24)
[2023-05-18] MEDS: Albuterol HFA INHALER 8 gm MDI INH PRN (06:28)
[2023-05-18] MEDS: oxyCODONE/Acetamin 5/325 mg TAB PO PRN ×2 (06:29→14:41)
[2023-05-18] MEDS: SPIRIVA Respimat (tiotropium) 2.5 mcg/inh Inhaler INH SCH (07:18)
[2023-05-18] MEDS: Mometasone/Formoter 200/5 MDI INH SCH ×2 (07:18→18:48)
[2023-05-18 07:51] LABS: Hematocrit 32.7 % (35-45); Hemoglobin 11.1 g/dL (11.5-14.3); Mean Corpuscular Hemoglobin 27.5 pg (27-33); Mean Corpuscular Hgb Conc 33.8 g/dL (31-36); Mean Corpuscular Volume 81.5 fL (80-97); Platelet Count 253 10^3/uL (150-450); Red Blood Count 4.02 10^6/uL (3.63-4.92); Red Cell Distribution Width 14.2 % (12-17); White Blood Count 10.2 10^3/uL (3.8-11.8)
[2023-05-18 08:27] LABS: Calcium 8.2 mg/dL (8.6-10.3); Potassium 3.5 mmol/L (3.5-5.0)
[2023-05-18 08:32] LABS: C Reactive Protein 99.03 mg/L (<8.01); Creatinine, Serum 0.81 mg/dL (0.51-0.95); eGFR CKD-EPI 88.4 (>60)
[2023-05-18] MEDS: Albuterol HFA INHALER 8 gm MDI INH SCH ×3 (11:00→18:48)
[2023-05-18] MEDS: Enoxaparin 40 MG/0.4 ML SYR SUBCUT SCH (11:58)
[2023-05-18] MEDS: cefTRIAXone 1 gm/50 mL D5W 1 GM/50 ML BAG IV SCH (13:04)
[2023-05-18] MEDS ORDERED: Albuterol HFA INHALER 8 gm MDI INH PRN (18:56)
[2023-05-19] MEDS: Mometasone/Formoter 200/5 MDI INH SCH ×2 (07:15→19:13)
[2023-05-19] MEDS: SPIRIVA Respimat (tiotropium) 2.5 mcg/inh Inhaler INH SCH (07:16)
[2023-05-19] MEDS: Enoxaparin 40 MG/0.4 ML SYR SUBCUT SCH (11:24)
[2023-05-19] MEDS: cefTRIAXone 1 gm/50 mL D5W 1 GM/50 ML BAG IV SCH (13:31)
[2023-05-19] MEDS: oxyCODONE/Acetamin 5/325 mg TAB PO PRN (22:10)
[2023-05-20] MEDS: SPIRIVA Respimat (tiotropium) 2.5 mcg/inh Inhaler INH SCH (07:47)
[2023-05-20] MEDS: Mometasone/Formoter 200/5 MDI INH SCH (07:47)
[2023-05-20 09:46] VITALS: BP 110/67
== END 2023-05-20 14:22 | disposition home or self-care (01) | DRG 871 ==
LOC: ED 22:31 → EDHOLD 22:31 → MED 05-16 19:05 → SUATTDRO 05-18 11:35
PROVIDERS: ADMIT Hospitalist; ATTEND Hospitalist